=== PATIENT | female | born 2000 | race Caucasian/White ===

== ENCOUNTER 2022-12-07 16:45 | Emergency (ER) | payer OTHER ==
[2022-12-07 16:55] VITALS: BMI 46.8
[2022-12-07] MEDS ORDERED: ACETAMINOPHEN 500 MG TABLET (FP) PO ONE (17:26)
[2022-12-07] MEDS ORDERED: ALBUTEROL SO4 2.5/IPRATROPIUM 0.5 INH SOL 3 ML VIAL.NEB. NEB ONE ×2 (17:27→17:33)
[2022-12-07] MEDS ORDERED: ACETAMINOPHEN 500 MG TABLET (FP) ONE (17:33)
[2022-12-07 18:20] VITALS: BP 103/73; TEMP 98.4
[2022-12-07 18:32] VITALS: PULSE 106; RESP 18
== END 2022-12-07 18:32 | disposition home or self-care (01) ==
LOC: JERFT 16:45
PROC: 3E0F7GC Introduction of Other Therapeutic Substance into Respiratory Tract, Via Natural or Artificial Opening (ICD-10-PCS; principal; 2022-12-07)
DX: J06.9 Acute upper respiratory infection, unspecified (principal)
CPT/HCPCS: 0241U-QW; 71046-TC-FY; 99284-25

== ENCOUNTER 2025-01-09 04:34 | Inpatient (IN) | payer OTHER ==
[2025-01-09] MEDS ORDERED: ACETAMINOPHEN INJECTION 100 ML ONE (05:04)
[2025-01-09 05:10] LABS: ABSOLUTE IMMATURE GRANULOCYTES 0.04 x10^3/uL (0.0-0.031); BASOPHILS # 0.02 x10^3/uL (0.01-0.08); EOSINOPHIL % 0.7 % (0.7-5.8); EOSINOPHILS # 0.07 x10^3/uL (0.04-0.36); HEMATOCRIT 17.8 % (34.1-44.9); HEMOGLOBIN 5.9 g/dL (11.2-15.7); MCHC 33.1 g/dl (32.2-35.5); MEAN CELL VOLUME 87.7 fl (79.4-94.8); MEAN PLT VOLUME 10.7 fl (9.4-12.3); MONOCYTE % 5.3 % (4.7-12.5); PLATELET COUNT 178 x10^3/uL (182-369); RDW 14.7 % (12.1-16.5)
[2025-01-09] MEDS: ACETAMINOPHEN 1000 MG/100 ML BAG IVPB ONE (05:12)
[2025-01-09 05:19] LABS: INR 1.3 (0.83-1.09); PROTHROMBIN TIME (PATIENT) 14.3 SEC (9.7-13.0)
[2025-01-09 05:21] LABS: ACTIVATED PTT 31.1 SECONDS (25.2-36.5)
[2025-01-09 05:38] LABS: POTASSIUM 3.4 mmol/L (3.5-5.1)
[2025-01-09 05:40] LABS: CALCIUM 8.7 mg/dL (8.5-10.1)
[2025-01-09] MEDS: SODIUM CHLORIDE 0.9% 500 ML INFUS.BAG IV ONE (05:40)
[2025-01-09 05:41] LABS: ALBUMIN 3.3 g/dl (3.4-5.0); BLOOD UREA NITROGEN 15.4 mg/dL (7-18)
[2025-01-09 05:45] LABS: BILIRUBIN,TOTAL 0.3 mg/dL (0.2-1)
[2025-01-09 05:46] LABS: TOT PROT 6.1 g/dl (6.4-8.2)
[2025-01-09] MEDS ORDERED: TRANEXAMIC ACID 1000 MG/10 ML VIAL ONE (08:24)
[2025-01-09] MEDS: TRANEXAMIC ACID 1000 MG/10 ML VIAL IVPUSH ONE (08:37)
[2025-01-09] MEDS ORDERED: POTASSIUM CHLORIDE ORAL LIQUID 20 MEQ/15 ML ONE (10:53)
[2025-01-09] MEDS: POTASSIUM CHLORIDE ORAL LIQUID 20 MEQ/15 ML PO ONE (11:22)
[2025-01-09 16:32] VITALS: BMI 43.7
[2025-01-09 17:06] LABS: EPI CELLS 7 /uL (0-25.1); HYALINE CASTS 1 /uL (0-3.1); PH,URINE 5.5 (5.0-8.0); URINE APPEARANCE TURBID; URINE BACTERIA 44 /uL (0-1359); URINE BILIRUBIN NEGATIVE (NEGATIVE); URINE COLOR RED; URINE GLUCOSE (UA) NEGATIVE (NEGATIVE); URINE KETONE NEGATIVE (NEGATIVE); URINE LEUK ESTERASE TRACE (NEGATIVE); URINE NITRITE NEGATIVE (NEGATIVE); URINE PROTEIN 2+ (NEGATIVE); URINE RBC 15238 /uL (0-23.9); URINE UROBILINOGEN 0.2 mg/dL (0.2-1.0); URINE WBC 26 /uL (0-25.8)
[2025-01-09 17:43] LABS: HEMATOCRIT 23.5 % (34.1-44.9); HEMOGLOBIN 7.4 g/dL (11.2-15.7); MCHC 31.5 g/dl (32.2-35.5); MEAN CELL VOLUME 90.7 fl (79.4-94.8); MEAN PLT VOLUME 10.8 fl (9.4-12.3); PLATELET COUNT 148 x10^3/uL (182-369); RDW 14.1 % (12.1-16.5)
[2025-01-10 07:41] LABS: BLOOD UREA NITROGEN 9.2 mg/dL (7-18); CALCIUM 8.6 mg/dL (8.5-10.1)
[2025-01-10 07:45] LABS: CREATININE 0.7 mg/dL (0.55-1.3)
[2025-01-10 08:03] LABS: HEMATOCRIT 20.3 % (34.1-44.9); HEMOGLOBIN 6.4 g/dL (11.2-15.7); MCHC 31.5 g/dl (32.2-35.5); MEAN PLT VOLUME 11.1 fl (9.4-12.3); PLATELET COUNT 112 x10^3/uL (182-369); RDW 14.4 % (12.1-16.5)
[2025-01-10 11:03] LABS: MAGNESIUM 2.1 mg/dL (1.8-2.4)
[2025-01-10] MEDS ORDERED: SODIUM CHLORIDE 1,000 ML IV STA (23:56)
[2025-01-11 00:32] LABS: HEMATOCRIT 22.3 % (34.1-44.9); HEMOGLOBIN 7.4 g/dL (11.2-15.7); MCHC 33.2 g/dl (32.2-35.5); MEAN CELL VOLUME 89.9 fl (79.4-94.8); MEAN PLT VOLUME 10.7 fl (9.4-12.3); PLATELET COUNT 109 x10^3/uL (182-369); RDW 13.7 % (12.1-16.5)
[2025-01-11 07:09] LABS: ABSOLUTE IMMATURE GRANULOCYTES 0.04 x10^3/uL (0.0-0.031); BASOPHILS # 0.01 x10^3/uL (0.01-0.08); EOSINOPHIL % 1.7 % (0.7-5.8); EOSINOPHILS # 0.12 x10^3/uL (0.04-0.36); HEMATOCRIT 22.2 % (34.1-44.9); HEMOGLOBIN 7.2 g/dL (11.2-15.7); MCHC 32.4 g/dl (32.2-35.5); MEAN PLT VOLUME 10.9 fl (9.4-12.3); MONOCYTE # 0.38 x10^3/uL (0.24-0.86); MONOCYTE % 5.3 % (4.7-12.5); PLATELET COUNT 111 x10^3/uL (182-369); RDW 13.9 % (12.1-16.5)
[2025-01-11 07:28] LABS: POTASSIUM 3.6 mmol/L (3.5-5.1)
[2025-01-11 07:32] LABS: CALCIUM 8.2 mg/dL (8.5-10.1)
[2025-01-11 07:33] LABS: BLOOD UREA NITROGEN 8.6 mg/dL (7-18)
[2025-01-11 07:36] LABS: CREATININE 0.7 mg/dL (0.55-1.3)
[2025-01-11 14:27] LABS: HEMATOCRIT 20.9 % (34.1-44.9); HEMOGLOBIN 6.9 g/dL (11.2-15.7); MEAN CELL VOLUME 89.7 fl (79.4-94.8); MEAN PLT VOLUME 10.5 fl (9.4-12.3); PLATELET COUNT 113 x10^3/uL (182-369); RDW 13.9 % (12.1-16.5)
[2025-01-11 20:05] LABS: HEMATOCRIT 21.7 % (34.1-44.9); HEMOGLOBIN 7.1 g/dL (11.2-15.7); MCHC 32.7 g/dl (32.2-35.5); MEAN CELL VOLUME 90.8 fl (79.4-94.8); MEAN PLT VOLUME 10.9 fl (9.4-12.3); PLATELET COUNT 122 x10^3/uL (182-369); RDW 14.1 % (12.1-16.5)
[2025-01-12 07:36] LABS: HEMATOCRIT 21.5 % (34.1-44.9); HEMOGLOBIN 6.7 g/dL (11.2-15.7); MCHC 31.2 g/dl (32.2-35.5); MEAN CELL VOLUME 91.9 fl (79.4-94.8); MEAN PLT VOLUME 10.7 fl (9.4-12.3); PLATELET COUNT 129 x10^3/uL (182-369); RDW 14.3 % (12.1-16.5)
[2025-01-12 07:49] LABS: POTASSIUM 3.9 mmol/L (3.5-5.1)
[2025-01-12 07:51] LABS: BLOOD UREA NITROGEN 5.9 mg/dL (7-18); CALCIUM 8.5 mg/dL (8.5-10.1)
[2025-01-12 07:55] LABS: CREATININE 0.6 mg/dL (0.55-1.3)
[2025-01-12] MEDS: ACETAMINOPHEN 325 MG TABLET (FP) PO PRN (08:43)
[2025-01-12 19:08] LABS: HEMATOCRIT 22.7 % (34.1-44.9); HEMOGLOBIN 7.7 g/dL (11.2-15.7); MCHC 33.9 g/dl (32.2-35.5); MEAN CELL VOLUME 91.2 fl (79.4-94.8); MEAN PLT VOLUME 10.4 fl (9.4-12.3); PLATELET COUNT 134 x10^3/uL (182-369); RDW 14.1 % (12.1-16.5)
[2025-01-13 06:41] LABS: HEMATOCRIT 21.6 % (34.1-44.9); MCHC 32.4 g/dl (32.2-35.5); MEAN CELL VOLUME 90.4 fl (79.4-94.8); MEAN PLT VOLUME 10.6 fl (9.4-12.3); PLATELET COUNT 116 x10^3/uL (182-369); RDW 14.5 % (12.1-16.5)
[2025-01-13 07:06] LABS: POTASSIUM 3.8 mmol/L (3.5-5.1)
[2025-01-13 07:19] LABS: CALCIUM 8.1 mg/dL (8.5-10.1)
[2025-01-13 07:21] LABS: BLOOD UREA NITROGEN 7.9 mg/dL (7-18)
[2025-01-13 07:23] LABS: CREATININE 0.6 mg/dL (0.55-1.3)
[2025-01-13 14:58] VITALS: RESP 19; TEMP 98.2
[2025-01-13 17:09] LABS: HEMATOCRIT 25.3 % (34.1-44.9); HEMOGLOBIN 8.6 g/dL (11.2-15.7); MEAN CELL VOLUME 88.8 fl (79.4-94.8); MEAN PLT VOLUME 10.5 fl (9.4-12.3); PLATELET COUNT 141 x10^3/uL (182-369); RDW 14.6 % (12.1-16.5)
[2025-01-13 17:10] VITALS: BP 114/68; PULSE 103
== END 2025-01-13 17:46 | disposition home or self-care (01) | DRG 532 ==
LOC: JER 04:34 → JERBED 09:08 → J4W 15:51
PROVIDERS: ADMIT Internal Medicine; ATTEND Internal Medicine
PROC: 30233N1 Transfusion of Nonautologous Red Blood Cells into Peripheral Vein, Percutaneous Approach (ICD-10-PCS; principal; 2025-01-09)
DX: N92.0 Excessive and frequent menstruation with regular cycle (principal); D62 Acute posthemorrhagic anemia; E66.9 Obesity, unspecified; Z68.41 Body mass index [BMI] 40.0-44.9, adult; G43.909 Migraine, unspecified, not intractable, without status migrainosus; R00.2 Palpitations
CPT/HCPCS: 0241U-QW; 36415; 36430; 71045-TC-FY; 76830-TC; 80048; 80053; 81003; 83735; 84484; 84703; 85025; 85027; 85610; 85730; 86850; 86900; 86901; 86922; 87077; 87086; 87186; 93005; 93010; 99285-25; P9058

== ENCOUNTER 2025-01-28 18:03 | Inpatient (IN) | payer OTHER ==
[2025-01-28 19:15] LABS: ABSOLUTE IMMATURE GRANULOCYTES 0.02 x10^3/uL (0.0-0.031); BASOPHILS # 0.02 x10^3/uL (0.01-0.08); EOSINOPHIL % 1.7 % (0.7-5.8); EOSINOPHILS # 0.13 x10^3/uL (0.04-0.36); HEMATOCRIT 20.4 % (34.1-44.9); HEMOGLOBIN 6.3 g/dL (11.2-15.7); MCHC 30.9 g/dl (32.2-35.5); MEAN CELL VOLUME 83.3 fl (79.4-94.8); MEAN PLT VOLUME 10.2 fl (9.4-12.3); MONOCYTE # 0.38 x10^3/uL (0.24-0.86); PLATELET COUNT 283 x10^3/uL (182-369)
[2025-01-28 19:26] LABS: INR 1.08 (0.83-1.09); PROTHROMBIN TIME (PATIENT) 11.8 SEC (9.7-13.0)
[2025-01-28 19:29] LABS: ACTIVATED PTT 29.2 SECONDS (25.2-36.5)
[2025-01-28 19:40] LABS: POTASSIUM 4.7 mmol/L (3.5-5.1)
[2025-01-28 19:45] LABS: CALCIUM 8.7 mg/dL (8.5-10.1)
[2025-01-28 19:46] LABS: ALBUMIN 3.6 g/dl (3.4-5.0)
[2025-01-28 19:49] LABS: BILIRUBIN,TOTAL 0.4 mg/dL (0.2-1); CREATININE 0.7 mg/dL (0.55-1.3); TOT PROT 7.1 g/dl (6.4-8.2)
[2025-01-29 02:21] LABS: ABSOLUTE IMMATURE GRANULOCYTES 0.02 x10^3/uL (0.0-0.031); BASOPHILS # 0.02 x10^3/uL (0.01-0.08); EOSINOPHIL % 1.9 % (0.7-5.8); EOSINOPHILS # 0.14 x10^3/uL (0.04-0.36); HEMATOCRIT 21.7 % (34.1-44.9); HEMOGLOBIN 6.8 g/dL (11.2-15.7); MCHC 31.3 g/dl (32.2-35.5); MEAN CELL VOLUME 84.4 fl (79.4-94.8); MEAN PLT VOLUME 9.9 fl (9.4-12.3); MONOCYTE # 0.38 x10^3/uL (0.24-0.86); MONOCYTE % 5.1 % (4.7-12.5); PLATELET COUNT 242 x10^3/uL (182-369); RDW 13.9 % (12.1-16.5)
[2025-01-29] MEDS ORDERED: DEXTROSE 50%-WATER - 25 GM/50 ML VIAL IVPUSH PRN (04:10)
[2025-01-29 04:33] VITALS: BMI 36.8
[2025-01-29] MEDS: FAMOTIDINE 20 MG TABLET PO SCH (09:37)
[2025-01-29] MEDS ORDERED: FERROUS GLUCONATE PO SCH (10:00)
[2025-01-29 12:40] LABS: HEMATOCRIT 26.4 % (34.1-44.9); HEMOGLOBIN 8.2 g/dL (11.2-15.7); MCHC 31.1 g/dl (32.2-35.5); MEAN CELL VOLUME 84.6 fl (79.4-94.8); MEAN PLT VOLUME 10.1 fl (9.4-12.3); PLATELET COUNT 246 x10^3/uL (182-369); RDW 13.7 % (12.1-16.5)
[2025-01-29 12:48] LABS: Reticulocyte % 2.67 % (0.5-1.7)
[2025-01-29 13:04] LABS: TOTAL IRON BINDING CAPACITY 376 ug/dL (250-450)
[2025-01-29 13:19] LABS: POTASSIUM 3.5 mmol/L (3.5-5.1)
[2025-01-29 13:22] LABS: BLOOD UREA NITROGEN 8.6 mg/dL (7-18); CALCIUM 9.1 mg/dL (8.5-10.1)
[2025-01-29 13:23] LABS: ALBUMIN 3.5 g/dl (3.4-5.0)
[2025-01-29 13:26] LABS: BILIRUBIN,TOTAL 0.8 mg/dL (0.2-1); CREATININE 0.7 mg/dL (0.55-1.3)
[2025-01-29 13:27] LABS: TOT PROT 6.7 g/dl (6.4-8.2)
[2025-01-29] MEDS: URSODIOL 300 MG CAPSULE PO SCH (14:10)
[2025-01-29 21:47] LABS: IRON SERUM 28 ug/dL (50-175)
[2025-01-30 08:30] LABS: ABSOLUTE IMMATURE GRANULOCYTES 0.02 x10^3/uL (0.0-0.031); BASOPHILS # 0.03 x10^3/uL (0.01-0.08); EOSINOPHIL % 2.5 % (0.7-5.8); EOSINOPHILS # 0.18 x10^3/uL (0.04-0.36); HEMATOCRIT 23.9 % (34.1-44.9); HEMOGLOBIN 7.4 g/dL (11.2-15.7); MEAN CELL VOLUME 84.5 fl (79.4-94.8); MEAN PLT VOLUME 10.2 fl (9.4-12.3); MONOCYTE # 0.41 x10^3/uL (0.24-0.86); MONOCYTE % 5.7 % (4.7-12.5); PLATELET COUNT 213 x10^3/uL (182-369); RDW 14.1 % (12.1-16.5)
[2025-01-30 08:59] LABS: ALBUMIN 3.2 g/dl (3.4-5.0); BLOOD UREA NITROGEN 9.2 mg/dL (7-18); MAGNESIUM 2.5 mg/dL (1.8-2.4)
[2025-01-30 09:02] LABS: CREATININE 0.6 mg/dL (0.55-1.3)
[2025-01-30 09:04] LABS: BILIRUBIN,TOTAL 0.5 mg/dL (0.2-1); TOT PROT 6.1 g/dl (6.4-8.2)
[2025-01-30] MEDS: IRON SUCROSE INJECTION 200 MG in SODIUM CHLORIDE 90 ML IVPB ONE (09:37)
[2025-01-31 06:13] VITALS: TEMP 98.4
[2025-01-31 08:35] LABS: ABSOLUTE IMMATURE GRANULOCYTES 0.02 x10^3/uL (0.0-0.031); BASOPHILS # 0.02 x10^3/uL (0.01-0.08); EOSINOPHIL % 2.2 % (0.7-5.8); EOSINOPHILS # 0.14 x10^3/uL (0.04-0.36); HEMATOCRIT 25.5 % (34.1-44.9); HEMOGLOBIN 7.7 g/dL (11.2-15.7); MCHC 30.2 g/dl (32.2-35.5); MEAN CELL VOLUME 85.6 fl (79.4-94.8); MEAN PLT VOLUME 10.3 fl (9.4-12.3); MONOCYTE # 0.37 x10^3/uL (0.24-0.86); MONOCYTE % 5.7 % (4.7-12.5); PLATELET COUNT 209 x10^3/uL (182-369); RDW 14.5 % (12.1-16.5)
[2025-01-31 09:19] LABS: BLOOD UREA NITROGEN 7.5 mg/dL (7-18); CALCIUM 8.9 mg/dL (8.5-10.1)
[2025-01-31 09:20] LABS: ALBUMIN 3.2 g/dl (3.4-5.0)
[2025-01-31 09:23] LABS: CREATININE 0.6 mg/dL (0.55-1.3)
[2025-01-31 09:24] LABS: TOT PROT 6.2 g/dl (6.4-8.2)
[2025-01-31 09:27] LABS: BILIRUBIN,TOTAL 0.4 mg/dL (0.2-1)
[2025-01-31] MEDS: IRON SUCROSE INJECTION 200 MG in SODIUM CHLORIDE 100 ML IVPB ONE (09:27)
[2025-01-31] MEDS: CALCIUM (OYSTER SHELL) 500 MG TABLET (FP) PO SCH (09:30)
[2025-01-31 09:53] LABS: MAGNESIUM 2.4 mg/dL (1.8-2.4)
[2025-01-31 10:19] VITALS: BP 123/65; PULSE 79; RESP 18
== END 2025-01-31 14:38 | disposition home or self-care (01) | DRG 532 ==
LOC: JER 18:03 → JERBED 01-29 02:28 → OBSVTOIN 01-29 04:07 → J7W 01-29 04:23
PROVIDERS: ADMIT Hospitalist
PROC: 30233N1 Transfusion of Nonautologous Red Blood Cells into Peripheral Vein, Percutaneous Approach (ICD-10-PCS; principal; 2025-01-29)
DX: N93.9 Abnormal uterine and vaginal bleeding, unspecified (principal); D62 Acute posthemorrhagic anemia; D50.9 Iron deficiency anemia, unspecified; N92.0 Excessive and frequent menstruation with regular cycle; E88.09 Other disorders of plasma-protein metabolism, not elsewhere classified; R74.01 Elevation of levels of liver transaminase levels
CPT/HCPCS: 36415; 36430; 74176-TC; 76705-TC; 76830-TC; 80053; 82607; 82728; 82746; 82962; 83540; 83550; 83615; 83735; 84439; 84443; 84466; 84703; 85025; 85027; 85610; 85730; 86850; 86880; 86900; 86901; 86922; 87338; 99285-25; G0378; J1756; P9058